=== PATIENT | male | born 1955 | race Caucasian/White ===

== ENCOUNTER 2020-09-13 21:10 | Observation (INO) | payer BC ==
[2020-09-13 21:57] LABS: CHLORIDE,CL 103 mEq/L (98-106); SODIUM,NA 140 mEq/L (136-145)
--- NOTE | 2020-09-13 22:17 | EDM.PDOC ---
ED HPI GENERAL MEDICAL PROBLEM - General Chief Complaint: Cardiovascular Problem Stated Complaint: "SOB, chest pain" Time Seen by Provider: 09/13/20 21:30 Source of Information: Reports: Patient History Limitations: Reports: No Limitations - History of Present Illness INITIAL COMMENTS - FREE TEXT/NARRATIVE: Liv is a 65 year old male who presents to ER with complaints of sudden onset shortness of breath and right side axilla and posterior chest discomfort. STates started approximately 45 minutes ago. Admits to pain with deep inspiration. Does have mild cough, nonproductive. No fevers. Has mild sinus congestion but states symptoms just started this evening. No hemoptysis. Has not lifted or strained his back. No nausea or abdominal pain. Did not eat this evening for supper as often doesn't since retiring. PMH includes prostate cancer, in remission 7 years ago "or so". HTN. Hyperlipidemia. Depression. Onset: Today, Sudden Duration: Minutes: Location: Reports: Chest Quality: Reports: Ache, Sharp Severity: Severe Improves with: Reports: Rest Worsens with: Reports: Breathing (deep breath) Associated Symptoms: Reports: Cough, Shortness of Breath. Denies: Confusion, Chest Pain, cough w sputum, Diaphoresis, Fever/Chills, Loss of Appetite, Nausea/Vomiting Flank Pain Score (Numeric/FACES): 8 - Related Data Allergies Allergy/AdvReac Type Severity Reaction Status Date / Time No Known Allergies Allergy Verified 09/13/20 21:39 Home Meds: Home Meds Aspirin 81 mg PO DAILY 09/13/20 [History] Citalopram Hydrobromide [Celexa] 40 mg PO DAILY 09/13/20 [History] Losartan [Cozaar] 50 mg PO BID 09/13/20 [History] Montelukast [Singulair] 10 mg PO DAILY 09/13/20 [History] Simvastatin 20 mg PO DAILY 09/13/20 [History] Past Medical History HEENT History: Reports: Allergic Rhinitis Cardiovascular History: Reports: High Cholesterol, Hypertension Psychiatric History: Reports: Depression Social & Family History - Tobacco Use Tobacco Use Status *Q: Unknown Ever Used Tobacco ED ROS GENERAL - Review of Systems Review Of Systems: See Below Constitutional: Reports: Malaise. Denies: Fever, Chills, Weakness, Fatigue, Decreased Appetite HEENT: Reports: Rhinitis. Denies: Ear Pain, Sinus Problem, Throat Pain Respiratory: Reports: Shortness of Breath, Pleuritic Chest Pain, Cough. Denies: Sputum, Hemoptysis Cardiovascular: Denies: Chest Pain, Edema, Lightheadedness Endocrine: Denies: Fatigue GI/Abdominal: Denies: Abdominal Pain, Constipation, Diarrhea, Nausea, Vomiting : Reports: No Symptoms Musculoskeletal: Reports: No Symptoms Skin: Reports: No Symptoms Neurological: Reports: No Symptoms ED EXAM, GENERAL - Physical Exam Exam: See Below Exam Limited By: No Limitations General Appearance: Alert, WD/WN, No Apparent Distress Ears: Normal External Exam, Normal TMs Nose: Normal Inspection, Normal Mucosa, No Blood Throat/Mouth: Normal Inspection, Normal Oropharynx Head: Normocephalic Neck: Normal Inspection, Supple, Non-Tender Respiratory/Chest: No Respiratory Distress, Lungs Clear, Normal Breath Sounds, Other (pain with palpation to right posterior chest) Cardiovascular: Tachycardia GI/Abdominal: Normal Bowel Sounds, Soft, Non-Tender Extremities: Normal Inspection, No Pedal Edema Neurological: Alert, Oriented Skin Exam: Warm, Dry Course - Vital Signs Last Recorded V/S: Last Vital Signs Temp 98.3 F 09/13/20 22:02 Pulse 118 H 09/13/20 22:02 Resp 24 H 09/13/20 22:02 BP 161/120 H 09/13/20 22:02 Pulse Ox 94 L 09/13/20 22:02 - Orders/Labs/Meds Orders: Active Orders 24 hr Category Date Time Status Ang Chest [CT] Stat Exams 09/13/20 22:11 Ordered Chest 2V [CR] Routine Exams 09/13/20 Ordered EKG 12 Lead [EK] Stat Ther 09/13/20 21:37 Ordered Labs: Laboratory Tests 09/13/20 09/13/20 09/13/20 Range/Units 21:37 21:42 21:42 WBC 9.7 (5.0-10.0) 10^3/uL RBC 4.98 (4.50-6.00) 10^6/uL Hgb 14.5 (14.0-18.0) g/dL Hct 43.6 (40.0-54.0) % MCV 87.6 (82.0-94.0) fL MCH 29.1 (27.0-32.0) pg MCHC 33.3 (33.0-38.0) g/dL RDW Coeff of Gagan 13.7 (11.0-15.0) % Plt Count 255 (150-400) 10^3/uL Neut % (Auto) 63.7 (35-85) % Lymph % (Auto) 23.9 (10-55) % [place] % (Auto) 9.5 (0-16) % Eos % (Auto) 2.6 (0-5) % Baso % (Auto) 0.3 (0-3) % Neut # (Auto) 6.15 (1.80-7.00) 10^3/uL Lymph # (Auto) 2.31 (1.00-4.80) 10^3/uL [place] # (Auto) 0.92 H (0.00-0.80) 10^3/uL Eos # (Auto) 0.25 (0.00-0.45) 10^3/uL Baso # (Auto) 0.03 10^3/uL D-Dimer, Quantitative 1.15 H (0.00-0.50) Sodium (136-145) mEq/L Potassium (3.5-5.0) mEq/L Chloride (98-106) mEq/L Carbon Dioxide (21-32) mmol/L BUN (7-18) mg/dL Creatinine (0.7-1.3) mg/dL Est Cr Clr Drug Dosing Estimated GFR (MDRD) (>=60) mL/min Glucose (75-99) mg/dL Calcium (8.4-10.1) mg/dL Total Bilirubin (0.0-1.0) mg/dL AST (15-37) U/L ALT (12-78) U/L Alkaline Phosphatase (46-116) U/L Lactate Dehydrogenase (100-190) U/L Creatine Kinase (35-232) U/L Troponin I (0.00-0.06) ng/mL C-Reactive Protein (0.2-0.8) mg/dL Total Protein (6.4-8.2) g/dL Albumin (3.4-5.0) g/dL Amylase (25-115) U/L Lipase (73-393) U/L SARS CoV-2 RNA Rapid TODD Negative (NEGATIVE) 09/13/20 Range/Units 21:42 WBC (5.0-10.0) 10^3/uL RBC (4.50-6.00) 10^6/uL Hgb (14.0-18.0) g/dL Hct (40.0-54.0) % MCV (82.0-94.0) fL MCH (27.0-32.0) pg MCHC (33.0-38.0) g/dL RDW Coeff of Gagan (11.0-15.0) % Plt Count (150-400) 10^3/uL Neut % (Auto) (35-85) % Lymph % (Auto) (10-55) % [place] % (Auto) (0-16) % Eos % (Auto) (0-5) % Baso % (Auto) (0-3) % Neut # (Auto) (1.80-7.00) 10^3/uL Lymph # (Auto) (1.00-4.80) 10^3/uL [place] # (Auto) (0.00-0.80) 10^3/uL Eos # (Auto) (0.00-0.45) 10^3/uL Baso # (Auto) 10^3/uL D-Dimer, Quantitative (0.00-0.50) Sodium 140 (136-145) mEq/L Potassium 3.6 (3.5-5.0) mEq/L Chloride 103 (98-106) mEq/L Carbon Dioxide 25 (21-32) mmol/L BUN 12 (7-18) mg/dL Creatinine 1.3 (0.7-1.3) mg/dL Est Cr Clr Drug Dosing TNP Estimated GFR (MDRD) 56 L (>=60) mL/min Glucose 101 H (75-99) mg/dL Calcium 9.0 (8.4-10.1) mg/dL Total Bilirubin 0.4 (0.0-1.0) mg/dL AST 16 (15-37) U/L ALT 21 (12-78) U/L Alkaline Phosphatase 59 (46-116) U/L Lactate Dehydrogenase 142 (100-190) U/L Creatine Kinase 156 (35-232) U/L Troponin I < 0.017 (0.00-0.06) ng/mL C-Reactive Protein 3.6 H (0.2-0.8) mg/dL Total Protein 7.7 (6.4-8.2) g/dL Albumin 3.9 (3.4-5.0) g/dL Amylase 98 (25-115) U/L Lipase 318 (73-393) U/L SARS CoV-2 RNA Rapid TODD (NEGATIVE) Meds: Medications Discontinued Medications Generic Name Dose Route Start Last Admin Trade Name Freq PRN Reason Stop Dose Admin Iopamidol 100 ml 09/13/20 22:18 09/13/20 22:52 Isovue-370 (76%) IVPUSH 09/13/20 22:19 100 ml ONETIME ONE Administration - Re-Assessments/Exams Free Text/Narrative Re-Assessment/Exam: 09/13/20 2220-lab results noted. D-dimer is elevated. Will proceed with CTA of chest 2315-CT report received. Does have bilateral PE. Will admit to observation, start Eliquis. No history of atrial fib, DVT, swelling in legs. Patient advised Departure - Departure Time of Disposition: 23:18 Disposition: Refer to Observation Condition: Fair Clinical Impression: Pulmonary emboli Forms: ED Department Discharge Sepsis Event Note (ED) - Evaluation Sepsis Screening Result: No Definite Risk - Focused Exam Vital Signs: Vital Signs Temp Pulse Resp BP Pulse Ox 09/13/20 22:02 98.3 F 118 H 24 H 161/120 H 94 L - Problem List & Annotations (1) Pulmonary emboli SNOMED Code(s): 87751607 Code(s): I26.99 - OTHER PULMONARY EMBOLISM WITHOUT ACUTE COR PULMONALE Status: Acute Priority: High Current Visit: Yes Qualifiers: Pulmonary embolism type: unspecified Chronicity: acute - Problem List Review Problem List Initiated/Reviewed/Updated: Yes - My Orders Last 24 Hours: My Active Orders 09/13/20 Chest 2V [CR] Routine 09/13/20 21:37 EKG 12 Lead [EK] Stat 09/13/20 22:11 Ang Chest [CT] Stat - Assessment/Plan Admission H&P: Please use this note as an admission H&P Last 24 Hours: My Active Orders 09/13/20 Chest 2V [CR] Routine 09/13/20 21:37 EKG 12 Lead [EK] Stat 09/13/20 22:11 Ang Chest [CT] Stat Assessment:: Bilateral Pulmonary Emboli Plan: Admit observation, start Eliquis 10 mg BID. Telemetry. Will need to obtain echocardiogram when available
[2020-09-13] MEDS ORDERED: Iopamidol 755 Mg/ML 100 ML Bottle IVPUSH ONE (22:18)
[2020-09-13] MEDS ORDERED: Non-Formulary Medication 1 Each (Losartan [Cozaar] 50 MG) PO SCH (23:30)
[2020-09-13] MEDS ORDERED: Losartan 25 MG Tab PO SCH (23:30)
[2020-09-14] MEDS ORDERED: LOSARTAN 50 MG PO SCH
[2020-09-14] MEDS ORDERED: Sodium Chloride 0.9% 10 ML Syringe FLUSH PRN
[2020-09-14] MEDS ORDERED: Ondansetron 4 MG Tab.DIS PO PRN
[2020-09-14] MEDS ORDERED: Acetaminophen 325 MG Tab PO PRN
[2020-09-14] MEDS: Apixaban 5 MG Tab PO SCH ×2 (00:45→07:43)
[2020-09-14] MEDS: LOSARTAN 50 MG PO SCH ×2 (01:09→07:45)
[2020-09-14 07:38] LABS: CHLORIDE,CL 103 mEq/L (98-106); SODIUM,NA 140 mEq/L (136-145)
[2020-09-14] MEDS ORDERED: CITALOPRAM 40 MG PO SCH (08:00)
[2020-09-14] MEDS ORDERED: SIMVASTATIN 20 MG PO SCH (08:00)
[2020-09-14] MEDS ORDERED: Non-Formulary Medication 1 Each (Citalopram Hydrobromide [Celexa] 40 MG) PO SCH (08:00)
[2020-09-14] MEDS ORDERED: Montelukast 10 MG Tab PO SCH (08:00)
[2020-09-14] MEDS ORDERED: Simvastatin 20 MG Tab PO SCH (08:00)
[2020-09-14] MEDS ORDERED: MONTELUKAST 10 MG PO SCH (08:00)
[2020-09-14] MEDS ORDERED: Aspirin 81 MG Tab.Chew PO SCH ×2 (08:00)
--- NOTE | 2020-09-15 16:01 | PCM.DCSUM1 ---
Discharge Summary - Hospital Course Free Text/Narrative:: Liv is a 65 year old male who presents to ER with complaints of sudden onset shortness of breath and right side axilla and posterior chest discomfort. Admits to pain with deep inspiration and worsens with movement. Had mild cough, nonproductive. No fevers. Has mild sinus congestion but states symptoms just started this evening. No hemoptysis. Has not lifted or strained his back. No nausea or abdominal pain. Denied history of covid exposure. Initial labs to rule out cardiac were negative. D-dimer elevated at 1.15. Covid negative. CTA of chest done shows bilateral PEs. PMH includes prostate cancer, in remission 7 years ago "or so". HTN. Hyperlipidemia. Depression. Onset: Today, Sudden Diagnosis: Stroke: No Modified Chitra Scale: No Symptoms at All Modified Chitra Scale Score: 0 - Discharge Data Discharge Date: 09/15/20 Discharge Disposition: Home, Self-Care 01 Condition: Fair - Referral to Home Health Primary Care Physician: PCP None - Discharge Diagnosis/Problem(s) (1) Pulmonary emboli SNOMED Code(s): 91989862 ICD Code: I26.99 - OTHER PULMONARY EMBOLISM WITHOUT ACUTE COR PULMONALE Status: Acute Priority: High Qualifiers: Pulmonary embolism type: unspecified Chronicity: acute - Patient Summary/Data Complications: none Hospital Course: Liv is a 65 year old who was admitted to observation due to bilateral PE. Did not require oxygen. Telemetry and EKG show sinus tachycardia, no evidence of atrial fib. No signs of DVT in legs. Covid negative. Has not recently travelled. Was started on Eliquis 10 mg BID. Echocardiogram obtained, awaiting results. SARS antibody testing done. STable vitals this am, feeling less pain and shortness of breath. Will discharge home on Eliquis. Follow up early next week with his usual provider Dr. De Guzman. - Patient Instructions Diet: Usual Diet as Tolerated Activity: As Tolerated - Discharge Plan *PRESCRIPTION DRUG MONITORING PROGRAM REVIEWED*: No *COPY OF PRESCRIPTION DRUG MONITORING REPORT IN PATIENT LAURYN: No Prescriptions/Med Rec: Apixaban [Eliquis] 10 mg PO BID #12 tablet Home Medications: Home Meds Aspirin 81 mg PO DAILY 09/13/20 [History] Citalopram Hydrobromide [Celexa] 40 mg PO DAILY 09/13/20 [History] Losartan [Cozaar] 50 mg PO BID 09/13/20 [History] Montelukast [Singulair] 10 mg PO DAILY 09/13/20 [History] Simvastatin 20 mg PO DAILY 09/13/20 [History] Apixaban [Eliquis] 10 mg PO BID #12 tablet 09/14/20 [Rx] Patient Handouts: Pulmonary Embolism Forms: ED Department Discharge Referrals: Arthur De Guzman MD [Consulting Physician] - (Follow up with Dr. De Guzman next week) - Discharge Summary/Plan Comment DC Time >30 min.: No - General Info Date of Service: 09/15/20 Admission Dx/Problem (Free Text: Pulmonary Embolus - Review of Systems General: Reports: Fatigue, Malaise. Denies: Fever, Weakness HEENT: Reports: No Symptoms Pulmonary: Reports: Shortness of Breath, Pleuritic Chest Pain. Denies: Cough Cardiovascular: Denies: Chest Pain, Edema, Lightheadedness Gastrointestinal: Denies: Abdominal Pain, Nausea, Vomiting Genitourinary: Reports: No Symptoms Musculoskeletal: Reports: No Symptoms Skin: Reports: No Symptoms Neurological: Reports: No Symptoms - Patient Data Vitals - Most Recent: Last Vital Signs Temp 99.1 F 09/14/20 12:00 Pulse 75 09/14/20 12:00 Resp 20 09/14/20 12:00 BP 189/98 H 09/14/20 12:00 Pulse Ox 95 09/14/20 12:00 Weight - Most Recent: 230 lb Med Orders - Current: Current Medications Discontinued Medications Acetaminophen (Tylenol) 650 mg PO Q4H PRN PRN Reason: Pain (Mild 1-3)/fever Last Admin: 09/14/20 00:46 Dose: 650 mg Documented by: Apixaban (Eliquis) 10 mg PO BID [facility] Last Admin: 09/14/20 07:43 Dose: 10 mg Documented by: Aspirin (Aspirin) 81 mg PO DAILY [facility] Aspirin (Aspirin) 81 mg PO DAILY [facility] Last Admin: 09/14/20 07:43 Dose: 81 mg Documented by: Iopamidol (Isovue-370 (76%)) 100 ml IVPUSH ONETIME ONE Stop: 09/13/20 22:19 Last Admin: 09/13/20 22:52 Dose: 100 ml Documented by: Losartan Potassium (Cozaar) 50 mg PO BID [facility] Montelukast Sodium (Singulair) 10 mg PO DAILY [facility] Montelukast Sodium (Singulair) 10 mg PO DAILY [facility] Last Admin: 09/14/20 07:43 Dose: 10 mg Documented by: Non-Formulary Medication (Citalopram Hydrobromide [Celexa]) 40 mg PO DAILY [facility] Non-Formulary Medication (Losartan [Cozaar]) 50 mg PO BID [facility] Citalopram 40mg Pt (Own) 1 each PO DAILY [facility] Last Admin: 09/14/20 07:45 Dose: 1 each Documented by: Losartan 50mg Pt (Own) 50 each PO BID [facility] Last Admin: 09/14/20 01:08 Dose: Not Given Documented by: Losartan 50mg Pt (Own) 1 each PO BID [facility] Last Admin: 09/14/20 07:45 Dose: 1 each Documented by: Ondansetron HCl (Zofran Odt) 4 mg PO Q4H PRN PRN Reason: nausea, able to take PO Simvastatin (Zocor) 20 mg PO DAILY [facility] Simvastatin (Zocor) 20 mg PO DAILY [facility] Last Admin: 09/14/20 07:42 Dose: 20 mg Documented by: Sodium Chloride (Saline Flush) 10 ml FLUSH ASDIRECTED PRN PRN Reason: Keep Vein Open - Exam General: Reports: Alert, Oriented HEENT: Reports: Mucous Membr. Moist/[place] Neck: Reports: Supple Lungs: Reports: Decreased Breath Sounds Cardiovascular: Reports: Regular Rate, Regular Rhythm GI/Abdominal Exam: Normal Bowel Sounds, Soft, Non-Tender Extremities: Normal Inspection, No Pedal Edema Skin: Reports: Warm, Dry Neurological: Reports: No New Focal Deficit
== END 2020-09-14 13:04 | disposition home or self-care (01) ==
LOC: CC.ED 21:10 → UNDOADMOB 23:15 → CC.ED 23:15 → CC.MS 23:15 → UNDODISOB 09-14 13:04
PROVIDERS: ADMIT Physician Assistant Medical; ATTEND Family Medicine
DX: U07.1 COVID-19 (principal); I26.99 Other pulmonary embolism without acute cor pulmonale; I10 Essential (primary) hypertension; F32.9 Major depressive disorder, single episode, unspecified; E78.00 Pure hypercholesterolemia, unspecified; Z79.82 Long term (current) use of aspirin; Z79.899 Other long term (current) drug therapy
CPT/HCPCS: 36415; 71046; 71275; 80048; 80053; 82150; 82550; 83615; 83690; 84484; 85025; 85027; 85379; 86140; 86769; 87635; 93005; 93306; 99285; A9270; G0378; Q9967; U0002